=== PATIENT | male | born 1940 | race Caucasian/White ===

== ENCOUNTER → 2017-08-22 | Outpatient (CLI) | payer OTHER | END | disposition home or self-care (01) | LOC: RAD 09:46 | PROVIDERS: ATTEND Physician Assistant Surgical | DX: M50.123 Cervical disc disorder at C6-C7 level with radiculopathy (principal); M48.02 Spinal stenosis, cervical region; M25.78 Osteophyte, vertebrae; M41.84 Other forms of scoliosis, thoracic region; M41.86 Other forms of scoliosis, lumbar region | CPT/HCPCS: 72082; 72141 ==